=== PATIENT | female | born 1985 | race Caucasian/White ===

== ENCOUNTER 2020-09-23 20:24 | Emergency (ER) | payer OTHER ==
[2020-09-23 20:30] VITALS: BP 198/76; PULSE 80; RESP 20; TEMP 98.7
[2020-09-23] MEDS ORDERED: ACET/COD 300 MG/30 MG STARTER PACK 6 TAB BTL PO STA (20:44)
[2020-09-23] MEDS ORDERED: PENICILLIN VK 500MG STARTER 4 TAB BTL PO STA (20:44)
--- NOTE | 2020-09-23 20:52 | ED ---
ENT HPI - General Chief complaint: Dental/Oral Stated complaint: Oral pain Time Seen by Provider: 09/23/20 20:35 Source: patient Mode of arrival: ambulatory Limitations: no limitations - History of Present Illness Initial comments: Patient is a 35-year-old female presenting to the emergency Department with complaints of left-sided lower dental pain increasing over the past 1-2 days. She states that about a month ago she noticed a small abscess in the same area, she states it opened and drained on its own and she's never had any difficulties with that. She states over the past 2 days she noticed increase left lower jaw pain, left ear pain and now difficulty with chewing. She denies any fevers or chills, no facial swelling. She denies any chest pain or shortness of breath. She has no further complaints. - Related Data Previous Rx's Medication Instructions Recorded Penicillin V Potassium [Pen Vee K] 500 mg PO QID 7 Days #28 tablet 09/23/20 Allergies Allergy/AdvReac Type Severity Reaction Status Date / Time amoxicillin Allergy Rash/Hives Verified 09/23/20 20:30 Review of Systems ROS Statement: Those systems with pertinent positive or pertinent negative responses have been documented in the HPI. ROS Other: All systems not noted in ROS Statement are negative. Past Medical History Past Medical History: No Reported History History of Any Multi-Drug Resistant Organisms: None Reported Past Surgical History: Section Past Psychological History: No Psychological Hx Reported Smoking Status: Never smoker Past Alcohol Use History: None Reported Past Drug Use History: None Reported General Exam - General Exam Comments Initial Comments: GENERAL: Patient is well-developed and well-nourished. Patient is nontoxic and in no acute distress. HEAD: Atraumatic, normocephalic. EYES: Pupils equal round and reactive to light, extraocular movements intact, sclera anicteric, conjunctiva are normal. Eyelids were unremarkable. ENT: TMs normal, nares patent, oropharynx clear without exudates. Moist mucous membranes. Patient has pain over tooth #19, there is a fracture to this tooth as well, there is no visible dental abscess seen. She has no facial swelling, no erythema of the face. NECK: Normal range of motion, supple without lymphadenopathy or JVD. LUNGS: Unlabored respirations. Breath sounds clear to auscultation bilaterally and equal. No wheezes rales or rhonchi. HEART: Regular rate and rhythm without murmurs, rubs or gallops. MUSCULOSKELETAL: Normal extremities with adequate strength and normal range of motion, no pitting or edema. No clubbing or cyanosis. NEUROLOGICAL: Patient is alert and oriented x 3. Motor and sensory are also intact. Cranial nerves II through XII grossly intact. Symmetrical smile. Normal speech, normal gait. PSYCH: Normal mood, normal affect. SKIN: Warm, Dry, normal turgor, no rashes or lesions noted. Limitations: no limitations Course Vital Signs 09/23/20 20:27 Temperature 98.7 F Pulse Rate 80 Respiratory 20 Rate Blood Pressure 198/76 O2 Sat by Pulse 99 Oximetry Medical Decision Making - Medical Decision Making Patient is a 35-year-old female here with left lower dental pain over the past 1-2 days. She does have pain with tooth #19, fracture of this tooth as well, no visible dental abscess seen, no facial swelling or redness to the face. No fevers. Patient will be started on antibiotics and given pain medicine here in the ER. I recommended following up with her dentist. She is agreeable to this plan of care. Return parameters were discussed with her and she verbalized understanding. Disposition Clinical Impression: Fracture of tooth, Toothache Disposition: HOME SELF-CARE Condition: Stable Instructions (If sedation given, give patient instructions): Toothache (ED) Additional Instructions: Please return to the Emergency Department if symptoms worsen or any other concerns. Take antibiotics as prescribed. Alternate between Tylenol and Motrin for discomfort. Please follow up with your dentist. Prescriptions: Penicillin V Potassium [Pen Vee K] 500 mg PO QID 7 Days #28 tablet Is patient prescribed a controlled substance at d/c from ED?: No Referrals: None,Stated [Primary Care Provider] - 1-2 days Time of Disposition: 20:51
== END 2020-09-23 21:05 | disposition home or self-care (01) ==
LOC: EC 20:24
DX: K03.81 Cracked tooth (principal); H92.02 Otalgia, left ear; Z88.0 Allergy status to penicillin
CPT/HCPCS: 99283

== ENCOUNTER 2022-02-06 15:31 | Emergency (ER) | payer OTHER ==
[2022-02-06] MEDS ORDERED: CLINDAMYCIN 150 MG CAP PO STA (16:40)
[2022-02-06] MEDS ORDERED: IBUPROFEN 800 MG TAB PO STA (16:48)
[2022-02-06] MEDS ORDERED: ACET/COD 300 MG/30 MG STARTER PACK 6 TAB BTL PO STA (16:48)
--- NOTE | 2022-02-06 16:54 | ED ---
ENT HPI - General Chief complaint: Dental/Oral Stated complaint: dental pain Time Seen by Provider: 02/06/22 16:36 Source: patient Mode of arrival: ambulatory Limitations: no limitations - History of Present Illness Initial comments: Patient is a 37-year-old female who presents to the emergency department with a chief complaint of toothache. Patient states symptoms started on [place] opal after cracking her tooth. Taking Tylenol without relief. Patient feels that her left lower cheek is swollen. She denies fever, chills, trouble breathing. - Related Data Previous Rx's Medication Instructions Recorded Penicillin V Potassium [Pen Vee K] 500 mg PO QID 7 Days #28 tablet 09/23/20 Clindamycin [Cleocin] 150 mg PO Q8H #90 capsule 02/06/22 Ibuprofen [Motrin] 800 mg PO Q6HR PRN #30 tab 02/06/22 Allergies Allergy/AdvReac Type Severity Reaction Status Date / Time amoxicillin Allergy Rash/Hives Verified 11/05/20 23:42 Review of Systems ROS Statement: Those systems with pertinent positive or pertinent negative responses have been documented in the HPI. ROS Other: All systems not noted in ROS Statement are negative. Past Medical History Past Medical History: No Reported History History of Any Multi-Drug Resistant Organisms: None Reported Past Surgical History: Section Past Psychological History: No Psychological Hx Reported Smoking Status: Never smoker Past Alcohol Use History: None Reported Past Drug Use History: None Reported General Exam Limitations: no limitations General appearance: alert, in no apparent distress Eye exam: Present: normal appearance, PERRL, EOMI. Absent: scleral icterus, conjunctival injection, periorbital swelling ENT exam: Present: other (Cracked left lower molar with erythematous gingiva. No fluctuance or drainable abscess.) Neck exam: Present: normal inspection, tenderness, other (No swelling or tenderness to suggest Kanchan's angina) Respiratory exam: Present: normal lung sounds bilaterally. Absent: respiratory distress, wheezes, rales, rhonchi, stridor Cardiovascular Exam: Present: regular rate, normal rhythm, normal heart sounds. Absent: systolic murmur, diastolic murmur, rubs, gallop, clicks Neurological exam: Present: alert, oriented X3, CN II-XII intact Psychiatric exam: Present: normal affect, normal mood Course Vital Signs 02/06/22 02/06/22 15:40 17:22 Temperature 98 F 97.9 F Pulse Rate 74 75 Respiratory 16 18 Rate Blood Pressure 135/52 153/65 O2 Sat by Pulse 97 96 Oximetry Medical Decision Making - Medical Decision Making Was pt. sent in by a medical professional or institution? No Did you speak to anyone other than the patient for history? No Did you review nursing and triage notes? Yes, symptoms consistent with nursing and triage notes. Were old charts reviewed? No Differential Diagnosis? Dental infection, dental abscess, kanchan's angina EKG interpreted by me (3pts min.)? NA X-rays interpreted by me (1pt min.)? NA CT interpreted by me (1pt min.)? @ -[none] U/S interpreted by me (1pt. min.)? NA What testing was considered but not performed? (CT, X-rays, U/S, labs)? Why? Considered CT for rule out abscess however there are no signs of abscess or kanchan's angina on physical exam. No fever, chills, nausea, vomiting. What meds were considered but not given? Why? None Did you discuss the management of the patient with other professionals? No Did you reconcile home meds? No, patient discharged. Was smoking cessation discussed for >3mins.? No Was critical care preformed (if so, how long)? No Were there social determinants of health that impacted care today? How? (Homelessness, low income, unemployed, alcoholism, drug addiction, transportation, low edu. Level, literacy, decrease access to med. care, penitentiary, rehab)? No Was there de-escalation of care discussed even if they declined? (Discuss DNR or withdrawal of care, Hospice)? No What co-morbidities impacted this encounter? (DM, HTN, Smoking, COPD, CAD, Cancer, CVA, Hep., AIDS, mental health diagnosis, sleep apnea, morbid obesity)? None Was patient admitted / discharged? This is a 37-year-old female presenting with left lower molar toothache. Patient does have cracked tooth with evidence of early infection. No abscess, no airway involvement, no fever. Patient will be discharged with antibiotics and pain control. She is advised to follow-up with dentist. Return parameters discussed. Undiagnosed new problem with uncertain prognosis? No Drug Therapy requiring intensive monitoring for toxicity (Heparin, Nitro, Insulin, Cardizem)? No Were any procedures done? No Diagnosis/symptom? dental infection Acute, or Chronic, or Acute on Chronic? acute Uncomplicated (without systemic symptoms) or Complicated (systemic symptoms)? NA Side effects of treatment? No Exacerbation, Progression, or Severe Exacerbation] NA Poses a threat to life or bodily function? No Dr. Pacheco is my attending. Disposition Clinical Impression: Pain, dental, Dental infection Disposition: HOME SELF-CARE Condition: Good Instructions (If sedation given, give patient instructions): Dental Abscess (ED), Toothache (ED) Additional Instructions: Take medication as directed. Save Tylenol 3 for severe pain. Do not take Tylenol 3 and Tylenol together. Follow up with the dentist in 1-2 days. Return to the emergency department experience new, concerning, or worsening symptoms. Prescriptions: Clindamycin [Cleocin] 150 mg PO Q8H #90 capsule Ibuprofen [Motrin] 800 mg PO Q6HR PRN #30 tab PRN Reason: Pain Is patient prescribed a controlled substance at d/c from ED?: No Referrals: Hipolito Kurtz MD [Primary Care Provider] - 1-2 days Time of Disposition: 16:54
[2022-02-06 17:24] VITALS: BP 153/65; PULSE 75; RESP 18; TEMP 97.9
== END 2022-02-06 17:22 | disposition home or self-care (01) ==
LOC: EC 15:31
DX: K04.7 Periapical abscess without sinus (principal); Z88.0 Allergy status to penicillin
CPT/HCPCS: 99283